=== PATIENT | male | born 1980 | race Caucasian/White ===

== ENCOUNTER 2017-08-30 12:17 | Outpatient (CLI) | payer BC ==
--- NOTE | 2017-08-30 13:34 | MRI ---
MRI CERVICAL SPINE: HISTORY: Patient with a history of fibromyalgia, radiculopathy in both fingertips. No history of trauma or ortiz rgery. M79.7. FINDINGS: Multiplanar, multisequence [id number] MRI images of the cervical spine obtained. The spinal cord is unremarkable with no evidence of cord masses or lesions. C1-2: Unremarkable. C2-3: Unremarkable. C3-4 and C4-5: There is mild disk desiccation. No significant degree of central stenosis or neural foraminal narrowing is seen. C5-6, C6-7, and C7-T1: Unremarkable. IMPRESSION: Mild C3-4 and C4-5 disk desiccation. No significant degree of central stenosis or neural foraminal n arrowing is seen. No evidence of spinal cord abnormality is seen. POS: PILAR
== END 2017-08-30 12:18 | disposition home or self-care (01) ==
LOC: MRI 12:17
PROVIDERS: ATTEND Physical Medicine & Rehabilitation
DX: M54.2 Cervicalgia (principal); M79.603 Pain in arm, unspecified; R53.1 Weakness; M50.30 Other cervical disc degeneration, unspecified cervical region
CPT/HCPCS: 72141